=== PATIENT | female | born 1995 | race Caucasian/White ===

== ENCOUNTER 2016-06-21 17:59 | Inpatient (IN) | payer OTHER ==
[2016-06-21 19:06] LABS: Urine Bacteria Absent (Absent); Urine Bilirubin Negative (Negative); Urine Glucose Negative (Negative); Urine Nitrite Negative (Negative)
[2016-06-21] MEDS ORDERED: Penicillin G Potassium IV* 5 MILLION.UNITS VIAL ONE (19:29)
[2016-06-21 19:56] LABS: Hematocrit 34 % (35-47); Hemoglobin 11.6 g/dl (12.0-16.0); Mean Corpuscular HGB Conc 35 g/dl (31-36); Mean Corpuscular Hemoglobin 30 pg (27-31); Mean Corpuscular Volume 86 fL (80-97); Mean Platelet Volume 8 um3 (7.4-10.4); Red Blood Count 3.91 10^6/ul (4.0-5.4); Red Cell Distribution Width 13 % (10.5-15); White Blood Count 13.7 10^3/ul (3.5-10.8)
[2016-06-21] MEDS ORDERED: Penicillin G Potassium IV* 5,000,000 UNITS in NS 0.9% 100 ML* 100 ML IVPB ONE (20:00)
[2016-06-21] MEDS ORDERED: fentaNYL* 50 MCG/ML 2 ML VIAL (100 MCG VIAL) ONE (20:08)
[2016-06-21 20:19] LABS: Benzodiazepine Urine Screen None Detected (None Detect)
[2016-06-21] MEDS ORDERED: Acetaminophen TAB* 325 MG PO PRN (21:41)
[2016-06-21] MEDS ORDERED: Dibucaine 1% 28.35 GM TUBE PR PRN (21:41)
[2016-06-21] MEDS ORDERED: Witch Hazel PAD* JAR TOPICAL PRN (21:41)
[2016-06-21] MEDS ORDERED: Measles, Mumps,Rubella VACC* 0.5 ML/VIAL SUBCUT ONE (21:41)
[2016-06-21] MEDS ORDERED: Glycerin ADULT SUPP PR PRN (21:41)
[2016-06-21] MEDS ORDERED: RHO D Immune Globulin (HUMAN)* 300 MCG = 1,500 I.U. INJ IM ONE (21:41)
[2016-06-21] MEDS ORDERED: Ibuprofen TAB* 600 MG PO PRN (21:41)
[2016-06-21] MEDS ORDERED: Varicella Virus Vaccine Live* 0.5 ML VIAL SUBCUT ONE (21:41)
[2016-06-21] MEDS ORDERED: Oxytocin in LR* 20 UNITS/1,000 ML BAG IVPB SCH (22:00)
[2016-06-21] MEDS ORDERED: OXYTOCIN* 10 UNITS/ML 1 ML VIAL ONE (23:53)
[2016-06-22] MEDS ORDERED: Penicillin G Potassium IV* 2,500,000 UNITS in NS 0.9% 100 ML* 100 ML IVPB SCH ×2
[2016-06-22 07:28] LABS: Hematocrit 28 % (35-47); Hemoglobin 9.7 g/dl (12.0-16.0); Mean Corpuscular HGB Conc 35 g/dl (31-36); Mean Corpuscular Hemoglobin 30 pg (27-31); Mean Corpuscular Volume 85 fL (80-97); Mean Platelet Volume 7 um3 (7.4-10.4); Red Blood Count 3.27 10^6/ul (4.0-5.4); Red Cell Distribution Width 13 % (10.5-15); White Blood Count 14.8 10^3/ul (3.5-10.8)
[2016-06-22] MEDS ORDERED: Simethicone TAB* 80 MG TAB.CHEW PO SCH (08:30)
[2016-06-22] MEDS: Docusate CAP* 100 MG PO SCH ×3 (09:32→20:45)
[2016-06-22] MEDS: Ferrous Gluconate TAB* 324 MG TAB PO SCH ×2 (13:51→20:45)
[2016-06-23] MEDS: Docusate CAP* 100 MG PO SCH ×2 (08:22→14:00)
[2016-06-23] MEDS: Ferrous Gluconate TAB* 324 MG TAB PO SCH (08:22)
[2016-06-23 08:32] VITALS: BP 113/58
== END 2016-06-23 14:00 | disposition home or self-care (01) | DRG 560 ==
LOC: MCHOBOUT 17:59 → MCHOB 19:25
PROVIDERS: ADMIT Obstetrics & Gynecology; ATTEND Obstetrics & Gynecology
PROC: 10E0XZZ Delivery of Products of Conception, External Approach (ICD-10-PCS; principal; 2016-06-21)
PROC: 10907ZC Drainage of Amniotic Fluid, Therapeutic from Products of Conception, Via Natural or Artificial Opening (ICD-10-PCS; 2016-06-21)
DX: O60.14X0 Preterm labor third trimester with preterm delivery third trimester, not applicable or unspecified (principal); Z37.0 Single live birth; Z3A.34 34 weeks gestation of pregnancy
CPT/HCPCS: 36415; 80307; 81003; 81015; 85025; 85461; 86850; 86870; 86880; 86900; 86901; 87086; 87491; 87591; 88307; A9270-GY; J2540; J2590; J2790; J3010

== ENCOUNTER 2016-10-01 12:36 | Emergency (ER) | payer OTHER ==
[2016-10-01 14:30] VITALS: BP 121/85
--- NOTE | 2016-10-01 14:51 | UC ---
Ear Complaint HPI - HPI Summary HPI Summary: 8 DAYS OF LEFT EAR PAIN AND DECREASED SENSATION. NO OTHER SX. - History of Current Complaint Stated Complaint: EAR DISCOMFORT, CONGESTION Time Seen by Provider: 10/01/16 14:14 Hx Obtained From: Patient Hx Last Menstrual Period: 08/09/16 Onset/Duration: Gradual Onset, Lasting Days, Still Present, Worse Since - last 2 days Severity Initially: Moderate Severity Currently: Moderate Pain Intensity: 5 Aggravating Factors: Nothing Alleviating Factors: Nothing Associated Signs/Symptoms: Positive: Hearing Loss. Negative: Discharge, URI Symptoms - Allergies/Home Medications Allergies/Adverse Reactions: Allergies Allergy/AdvReac Type Severity Reaction Status Date / Time Banana Allergy GI Upset Verified 10/01/16 14:30 PMH/Surg Hx/FS Hx/Imm Hx Previously Healthy: Yes - Surgical History Surgical History: Yes Surgery Procedure, Year, and Place: T&A - Family History Known Family History: Positive: Cardiac Disease, Hypertension, Diabetes, Other - cancer - Social History Alcohol Use: Rare Substance Use Type: None Smoking Status (MU): Current Some Day Smoker Type: Cigarettes Have You Smoked in the Last Year: Yes Household Exposure Type: Cigarettes - Immunization History Most Recent Influenza Vaccination: declined Most Recent Tetanus Shot: 06/02/16 Most Recent Pneumonia Vaccination: not indicated Review of Systems Constitutional: Negative Skin: Negative Eyes: Negative ENT: Ear Ache Respiratory: Negative Cardiovascular: Negative Gastrointestinal: Negative Neurological: Negative All Other Systems Reviewed And Are Negative: Yes Physical Exam Triage Information Reviewed: Yes Appearance: Well-Appearing, No Pain Distress, Well-Nourished Vital Signs: Initial Vital Signs Temp 98.4 F 10/01/16 14:27 Pulse 77 10/01/16 14:27 Resp 16 10/01/16 14:27 BP 121/85 10/01/16 14:27 Pulse Ox 97 10/01/16 14:27 Vital Signs Reviewed: Yes Eyes: Positive: Conjunctiva Clear. Negative: Discharge ENT: Positive: Hearing grossly normal, Pharynx normal, TM bulging, TM red. Negative: Nasal congestion, Nasal drainage, Tonsillar swelling, Muffled/hoarse voice Neck: Positive: Supple, Nontender, No Lymphadenopathy Respiratory: Positive: Lungs clear, Normal breath sounds, No respiratory distress, No accessory muscle use Cardiovascular: Positive: RRR, No Murmur Musculoskeletal Exam: Normal Neurological: Positive: Alert, Muscle Tone Normal Psychological: Positive: Age Appropriate Behavior Skin Exam: Normal Ear Complaint Course/Dx - Differential Dx/Diagnosis Differential Diagnosis/HQI/PQRI: Otitis Externa, Otitis Media, Perforated TM, URI Provider Diagnoses: otitis media Discharge - Discharge Plan Condition: Stable Disposition: HOME Prescriptions: Amoxicillin SUSP* [Amoxicillin 400 MG/5 ML SUSP*] 500 mg PO BID #250 ml Patient Education Materials: Otitis Media (ED) Referrals: No Primary Care Phys,NOPCP [Primary Care Provider] - Additional Instructions: AMOXICILLIN: Amoxicillin is a member of the penicillin family. It covers the germs likely to cause ear, bronchial, and urinary infections better than plain penicillin. Amoxicillin can be taken without regard to meals. Nausea after taking the medication is rare, but can occur. Diarrhea can occur, particularly in small children. Vaginal yeast infections and oral thrush in infants are also common. Contact your physician if these problems occur. Allergy to penicillins is common. If you have had an allergic reaction to any drug of the penicillin family, you should never take any other penicillin. Notify your doctor at once if you develop hives, itching, swelling, faintness, or shortness of breath. Less serious side effects can include nausea or diarrhea. ANY TIME YOU TAKE AN ANTIBIOTIC, IT IS IMPORTANT TO REPLENISH THE BODY'S BALANCE OF "GOOD" BACTERIA BY EATING HIGH QUALITY CULTURED FOOD SUCH YOGURT, SAURKRAUT OR KEVIN CHI AND/OR TAKING A PROBIOTIC SUPPLEMENT. FOLLOW-UP CARE: You should establish with a private physician for follow-up care. If you are unable to get a timely appointment, or if you are worsening, call us or return for re-evaluation. An additional resource available to assist in finding the appropriate physician for your health care needs is the [facility]erral Center. You may contact them by calling [phone].
== END 2016-10-01 14:46 | disposition home or self-care (01) ==
LOC: UCEAST 12:36
DX: H66.92 Otitis media, unspecified, left ear (principal); F17.210 Nicotine dependence, cigarettes, uncomplicated
CPT/HCPCS: 99212; G0463

== ENCOUNTER 2016-10-03 14:58 | Emergency (ER) | payer OTHER ==
[2016-10-03 15:39] VITALS: BP 101/64
--- NOTE | 2016-10-03 16:11 | UC ---
Skin Complaint HPI - HPI Summary HPI Summary: Here 2 days ago, dx with L AOM and put on Amoxicillin. Took 1st dose that night and yesterday morning woke up with many itchy bumps just on R posterior upper arm. [place] worse today after taking another dose. No bumps or itchiness anywhere else; has taken amox without a problem in the past. Denies new furniture, recent travel, or new bedding. - History of Current Complaint Chief Complaint: UCRash Time Seen by Provider: 10/03/16 15:37 Stated Complaint: RASH Hx Obtained From: Patient Hx Last Menstrual Period: 08/07/16 ?: No Onset/Duration: Sudden Onset Skin Exposure Onset/Duration: Days Ago Timing: Constant Onset Severity: Mild Current Severity: Mild Location: Discrete Character: Pruritus, Redness, Raised Aggravating: Touch Alleviating: Nothing Associated Signs & Symptoms: Positive: Rash Related History: Recent change in medication - Allergy/Home Medications Allergies/Adverse Reactions: Allergies Allergy/AdvReac Type Severity Reaction Status Date / Time Banana Allergy GI Upset Verified 10/03/16 15:31 Review of Systems Constitutional: Negative Skin: Rash Eyes: Negative ENT: Negative Respiratory: Negative Cardiovascular: Negative Gastrointestinal: Negative Genitourinary: Negative Motor: Negative Neurovascular: Negative Musculoskeletal: Negative Neurological: Negative Psychological: Negative All Other Systems Reviewed And Are Negative: Yes PMH/Surg Hx/FS Hx/Imm Hx Previously Healthy: Yes - Surgical History Surgical History: Yes Surgery Procedure, Year, and Place: &A - 2003 - Family History Known Family History: Positive: Cardiac Disease, Hypertension, Diabetes, Other - cancer - Social History Lives: With Family Alcohol Use: Rare Substance Use Type: None Smoking Status (MU): Light Every Day Tobacco Smoker Type: Cigarettes Amount Used/How Often: 2-3 cigs/ day Have You Smoked in the Last Year: Yes Household Exposure Type: Cigarettes - Immunization History Most Recent Influenza Vaccination: declined Most Recent Tetanus Shot: 06/02/16 Most Recent Pneumonia Vaccination: not indicated Physical Exam Triage Information Reviewed: Yes Appearance: Well-Appearing, No Pain Distress, Well-Nourished Vital Signs: Initial Vital Signs Temp 98.3 F 10/03/16 15:32 Pulse 70 10/03/16 15:32 Resp 18 10/03/16 15:32 BP 101/64 10/03/16 15:32 Pulse Ox 98 05/23/17 15:32 Vital Signs Reviewed: Yes Eye Exam: Normal Eyes: Positive: Conjunctiva Clear ENT Exam: Normal ENT: Positive: Normal ENT inspection, Hearing grossly normal, Pharynx normal, TMs normal Dental Exam: Normal Neck exam: Normal Respiratory Exam: Normal Respiratory: Positive: Chest non-tender, Lungs clear, Normal breath sounds, No respiratory distress, No accessory muscle use Cardiovascular Exam: Normal Cardiovascular: Positive: RRR, No Murmur Musculoskeletal Exam: Normal Neurological Exam: Normal Neurological: Positive: Alert Psychological Exam: Normal Skin Exam: Other - grouped itchy red welts or R posterior upper arm, some arranged in linear patterns. No urticaria or rashes elsewhere on body Course/Dx - Diagnoses Provider Diagnoses: medication allergy. vs. bedbug bites Discharge - Discharge Plan Condition: Stable Disposition: HOME Prescriptions: Cefdinir 250mg/5 ml* [Omnicef 250 mg/5 ml*] 300 mg PO BID #60 ml Patient Education Materials: Antibiotic Medication Allergy (ED), Bed Bugs (ED) Referrals: No Primary Care Phys,NOPCP [Primary Care Provider] - Additional Instructions: As we discussed, the timing of your rash is suspicious for medication allergy. However, the appearance and distribution of your rash is suggestive of bedbugs. Stop the amoxicillin; you only need to start the omnicef if you have worsening ear pain, fever, or drainage from the ear. If you have worsening ear symptoms despite the second antibiotic, please return here. If you continue to get new bumps, or if your partner starts getting a rash, inspect your living area for evidence of bed bugs.
== END 2016-10-03 16:14 | disposition home or self-care (01) ==
LOC: UCEAST 14:58
DX: R21 Rash and other nonspecific skin eruption (principal); F17.210 Nicotine dependence, cigarettes, uncomplicated
CPT/HCPCS: 99212; G0463

== ENCOUNTER 2019-01-14 11:40 | Emergency (ER) | payer OTHER ==
[2019-01-14 12:20] LABS: ABS Lymphocytes 1.2 10^3/ul (1.0-4.8); ABS Monocytes 0.8 10^3/ul (0-0.8); ABS Neutrophils 9.4 10^3/ul (1.5-7.7); Eosinophil % 0.3 %; Hematocrit 34 % (35-47); Hemoglobin 11.7 g/dL (12.0-16.0); Lymphocyte % 10.7 %; Mean Corpuscular HGB Conc 35 g/dL (31-36); Mean Corpuscular Hemoglobin 31 pg (27-31); Mean Corpuscular Volume 88 fL (80-97); Mean Platelet Volume 7.7 fL (7.4-10.4); Platelet Count 193 10^3/uL (150-450); Red Blood Count 3.81 10^6 /uL (3.70-4.87); Red Cell Distribution Width 14 % (10-15); White Blood Count 11.4 10^3/uL (3.5-10.8)
[2019-01-14 12:33] LABS: Albumin 3.8 g/dL (3.2-5.2); Albumin/Globulin Ratio 1.6 (1-3); BUN/Creatinine Ratio 13.6 (8-20); C Reactive Protein 128.85 mg/L (<8.01); Calcium 8.8 mg/dL (8.6-10.3); EGFR African American 134.3 (>60); Globulin 2.4 g/dL (2-4); Potassium 3.6 mmol/L (3.5-5.0); Total Bilirubin 0.4 mg/dL (0.2-1.0); Total Protein 6.2 g/dL (6.4-8.9)
--- NOTE | 2019-01-14 15:04 | ED ---
Abdominal Pain/Female - HPI Summary HPI Summary: This patient is a 23 year old F presenting [facility] accompanied by with a chief complaint of sharp abdominal pain since night of 12/12/18. Pt has not been able to eat. Pt reports pain when breathing. Pt is 22 weeks . Symptoms aggravated by coughing . Patient reports vomiting, chills, constipation, loss of appetite, chronic vaginal discharge and low amount of urine. Patient denies fever, and diarrhea. A1. Medications reviewed. Allergies noted. - History of Current Complaint Chief Complaint: EDAbdPain Stated Complaint: 22 WKS PREG LOW ABD PAIN PER PT Time Seen by Provider: 01/14/19 14:40 Hx Obtained From: Patient Hx Last Menstrual Period: 08/07/16 ?: Yes Onset/Duration: Lasting Days, Still Present Timing: Constant Severity Initially: Moderate Severity Currently: Moderate Pain Intensity: 5 Pain Scale Used: 0-10 Numeric Location: Diffuse Character: Sharp Aggravating Factor(s): Other: - Coughing Alleviating Factor(s): Nothing Associated Signs and Symptoms: Positive: Cough, Urinary Symptoms, Decreased Appetite, Vaginal Discharge, Vomiting. Negative: Fever, Diarrhea Allergies/Adverse Reactions: Allergies Allergy/AdvReac Type Severity Reaction Status Date / Time banana Allergy GI Upset Verified 01/14/19 14:28 Home Medications: Home Medications Vitamin TAB* 1 tab PO DAILY 01/14/19 [History Confirmed 01/14/19] PMH/Surg Hx/FS Hx/Imm Hx Sensory History: Denies: Hx Legally Blind, Hx Deafness Opthamlomology History: Denies: Hx Legally Blind EENT History: Denies: Hx Deafness - Surgical History Surgery Procedure, Year, and Place: &A - 2003 Infectious Disease History: No Infectious Disease History: Denies: Traveled Outside the [place] in Last 30 Days - Family History Known Family History: Positive: Cardiac Disease, Hypertension, Diabetes, Other - cancer - Social History Lives: With Family Alcohol Use: Rare Substance Use Type: Reports: None Smoking Status (MU): Light Every Day Tobacco Smoker Type: Cigarettes Amount Used/How Often: 2-3 cigs/ day Have You Smoked in the Last Year: Yes Review of Systems Positive: Chills, Other - pos - loss of appetite. Negative: Fever Positive: Abdominal Pain, Vomiting, Other - pos - constipation. Negative: Diarrhea Positive: discharge, other - low amount of urine All Other Systems Reviewed And Are Negative: Yes Physical Exam - Summary Physical Exam Summary: Constitutional: Well-developed, Well-nourished, Alert. (-) Distressed Skin: Warm, Dry HENT: Normocephalic; Atraumatic Eyes: Conjunctiva normal Neck: Musculoskeletal ROM normal neck. (-) JVD, (-) Stridor, (-) Tracheal deviation Cardio: Rhythm regular, rate normal, Heart sounds normal; Intact distal pulses; The pedal pulses are 2+ and symmetric. Radial pulses are 2+ and symmetric. (-) Murmur Pulmonary/Chest wall: Effort normal. (-) Respiratory distress, (-) Wheezes, (-) Rales Abd: Soft, (-) tenderness, (-) Distension, (-) Guarding, (-) Rebound; Gravid uterus lower abdominal pain worse in LLQ, but present in all lower quadrants Musculoskeletal: (-) Edema Lymph: (-) Cervical adenopathy Neuro: Alert, Oriented x3 Psych: Mood and affect Normal Heart Rate - 148 bpm Triage Information Reviewed: Yes Vital Signs On Initial Exam: Initial Vitals Temp Pulse Resp BP Pulse Ox 97.9 F 117 20 130/87 98 01/14/19 11:42 01/14/19 11:42 01/14/19 11:42 01/14/19 11:42 01/14/19 11:42 Vital Signs Reviewed: Yes Diagnostics - Vital Signs Vital Signs Temp Pulse Resp BP Pulse Ox 01/14/19 11:42 97.9 F 117 20 130/87 98 - Laboratory Lab Results: Lab Results 01/14/19 01/14/19 01/14/19 Range/Units 12:01 12:01 12:01 WBC 11.4 H (3.5-10.8) 10^3/uL RBC 3.81 (3.70-4.87) 10^6 /uL Hgb 11.7 L (12.0-16.0) g/dL Hct 34 L (35-47) % MCV 88 (80-97) fL MCH 31 (27-31) pg MCHC 35 (31-36) g/dL RDW 14 (10-15) % Plt Count 193 (150-450) 10^3/uL MPV 7.7 (7.4-10.4) fL Neut % (Auto) 81.9 % Lymph % (Auto) 10.7 % [place] % (Auto) 6.8 % Eos % (Auto) 0.3 % Baso % (Auto) 0.3 % Absolute Neuts (auto) 9.4 H (1.5-7.7) 10^3/ul Absolute Lymphs (auto) 1.2 (1.0-4.8) 10^3/ul Absolute Monos (auto) 0.8 (0-0.8) 10^3/ul Absolute Eos (auto) 0.0 (0-0.6) 10^3/ul Absolute Basos (auto) 0.0 (0-0.2) 10^3/ul Absolute Nucleated RBC 0.0 10^3/ul Nucleated RBC % 0.0 Sodium 134 L (135-145) mmol/L Potassium 3.6 (3.5-5.0) mmol/L Chloride 102 (101-111) mmol/L Carbon Dioxide 25 (22-32) mmol/L Anion Gap 7 (2-11) mmol/L BUN 9 (6-24) mg/dL Creatinine 0.66 (0.51-0.95) mg/dL Est GFR ( Amer) 134.3 (>60) Est GFR (Non-Af Amer) 111.0 (>60) BUN/Creatinine Ratio 13.6 (8-20) Glucose 95 (70-100) mg/dL Lactic Acid 1.1 (0.5-2.0) mmol/L Calcium 8.8 (8.6-10.3) mg/dL Total Bilirubin 0.40 (0.2-1.0) mg/dL AST 32 (13-39) U/L ALT 35 (7-52) U/L Alkaline Phosphatase 66 (34-104) U/L C-Reactive Protein 128.85 H (<8.01) mg/L Total Protein 6.2 L (6.4-8.9) g/dL Albumin 3.8 (3.2-5.2) g/dL Globulin 2.4 (2-4) g/dL Albumin/Globulin Ratio 1.6 (1-3) Beta HCG, Quant Cancelled Result Diagrams: 01/14/19 12:01 01/14/19 12:01 Lab Statement: Any lab studies that have been ordered have been reviewed, and results considered in the medical decision making process. - Ultrasound Appendix US Ultrasound Interpretation Completed By: Radiologist Summary of Ultrasound Findings: Appendix US reveals, per radiologist, IMPRESSION : Appendix not visualized. ED physician has reviewed this radiology report. - Additional Comments Diagnostic Additional Comments: Abdomen MRI reveals, per radiologist, IMPRESSION: NO FINDINGS TO SUGGEST ACUTE APPENDICITIS. ED physician has reviewed this radiology report. Re-Evaluation - Re-Evaluation First Eval Re-Evaluation Time: 15:11 Comment: Discussed plan of care with pt. Second Eval Re-Evaluation Time: 16:57 Comment: Discussed MRI results. Abdominal Pain Fem Course/Dx - Course Course Of Treatment: Patient is here with lower abdominal pain in the setting of . She did have a mildly elevated leukocytosis with a CRP of 130. Patient had an equivocal ultrasound for appendicitis. SWITCHBOARD RECEPTIONIST was consulted along with radiologist and put recommended MRI. Patient MRI of her abdomen which showed no evidence of any acute abnormality. Patient is likely suffering from a viral syndrome. Patient is discharged on Reglan for her vomiting. - Diagnoses Provider Diagnoses: Intrauterine , Abdominal pain, Acute vomiting, Chills - Provider Notifications Discussed Care Of Patient With: Kervin Torres Time Discussed With Above Provider: 15:04 Instructed by Provider To: Other - Before exposing to radiation run by surgery and radiology first. 15:05 - Dr. Trotter said if ultra sound is negative, do an MRI. 15:25- Dr. Palacio, agrees, but suggest a CT. Discharge ED - Sign-Out/Discharge Documenting (check all that apply): Patient Departure - Discharge Patient Received Moderate/Deep Sedation with Procedure: No - Discharge Plan Condition: Stable Disposition: HOME Prescriptions: Metoclopramide TAB* [Reglan TAB*] 10 mg PO Q8H PRN #12 tab PRN Reason: Vomiting Patient Education Materials: Nausea and Vomiting in (ED), Abdominal Pain in (ED) Referrals: Kervin Torres MD [Medical Doctor] - As Soon As Possible Additional Instructions: Follow up with OBGYN as soon as possible. PLEASE RETURN TO EMERGENCY DEPARTMENT FOR ANY NEW OR WORSENING SYMPTOMS - Billing Disposition and Condition Condition: STABLE Disposition: Home - Attestation Statements Document Initiated by Scribe: Yes Documenting Scribe: Nirmala Gilliland Provider For Whom Scribe is Documenting (Include Credential): Saul Lu MD Scribe Attestation: Nirmala Tai, scribed for Saul Lu MD on 01/14/19 at 205. Scribe Documentation Reviewed: Yes Provider Attestation: The documentation as recorded by the scribe, Nirmala Gilliland accurately reflects the service I personally performed and the decisions made by me, Saul Lu MD Status of Scribe Document: Viewed
[2019-01-14] MEDS ORDERED: NS 0.9% 1000 ML** 1,000 ML IV ONE (15:13)
[2019-01-14 17:12] VITALS: BP 110/70
--- NOTE | 2019-01-14 18:24 | CONS ---
EMERGENCY ROOM CONSULTATION REPORT: DATE OF CONSULT: 01/14/19 HISTORY OF PRESENT ILLNESS: Ms. Broderick is a 23-year-old 3, para 1-0-1-1 , with a due date of 05/19/19 with a at 22-1/7 weeks estimated gestational age. She presented to the emergency room with complaints of abdominal pain that started on 01/12/19. The patient stated that the pain was localized to the right lower quadrant and radiated towards her lower abdomen. It was intermittent, a crampy sharp colicky sensation. The pain is accompanied by nausea, vomiting, anorexia, and chills. It was better on Sunday morning; however, this morning, the patient awoke with worsening pain. She denied any urinary signs or symptoms. She denied vaginal bleeding, contractions, leakage of fluid, and admits to positive movement. PAST MEDICAL HISTORY: No history of chronic illness. PAST SURGICAL HISTORY: Tonsils and adenoids. FAMILY HISTORY: Significant for hypothyroidism, leukemia, cardiac disease, high blood pressure, and diabetes. SOCIAL HISTORY: The patient denies alcohol use, illicit substance abuse, and she does admit to 2 to 3 cigarettes per day including during . PHYSICAL EXAM: Her vital signs on presentation were temperature of 97.9, pulse in the 100s, respiratory rate of 20, blood pressure of 130/87 with a pulse ox of 98% on room air. Physical exam done by me. Her lungs were clear to auscultation bilaterally. She had no CVA tenderness bilaterally. Her abdomen is soft, gravid, palpable movement with right lower abdominal tenderness on palpation, slight rebound, and left lower quadrant tenderness which radiated towards the patient's right side. Pelvic exam was deferred. DIAGNOSTIC STUDIES/LAB DATA: heart tones were obtained by Doppler. She had a bedside ultrasound which noted positive movement. The patient had a CBC which was consistent with a white blood cell count of 11.4 , hemoglobin and hematocrit of 11.7/34. Rest of the indices were normal. She had a comprehensive metabolic panel which showed a sodium at 134. Electrolytes were all within normal limits along with glucose. Lactic acid of 1.1. LFTs were within normal limits and a C-reactive protein of 128.85, elevated. Abdominal ultrasound is pending. IMPRESSION AND PLAN: The patient's signs and symptoms seem to be gastrointestinal in nature consistent with a possible appendicitis. The patient had a compression ultrasound which has not been read as to the time of this dictation; however, if this is inconclusive, the next study could be either an MRI which is second test preferred; however, if not available then a CT scan of the abdomen is appropriate. The radiation on the CT scan does not reach levels that are harmful to the fetus. I had a conversation with the patient and the patient's significant other, and we discussed her signs and symptoms and possible diagnosis of appendicitis and the possible need for surgical procedure or further radiological imaging. I explained to the patient that in the event that she does need surgery that this will be recommended and it should pose no danger to her as well as either an MRI or a CT scan of the abdomen. The patient's questions were answered to her satisfaction and she is aware of possible surgery or need for more radiation studies. Dopplers were done prior in the emergency room. If the patient does go to the operating room, I recommend that she is maintained in a left lateral decubitus position and after surgery that she have heart tones confirmed by Doppler. [id number]/[facility] #: [id number] DIANE
== END 2019-01-14 17:11 | disposition home or self-care (01) ==
LOC: ED 11:40
DX: O21.2 Late vomiting of pregnancy (principal); R10.31 Right lower quadrant pain; R10.84 Generalized abdominal pain; R68.83 Chills (without fever); Z3A.22 22 weeks gestation of pregnancy; Z91.018 Allergy to other foods; F17.210 Nicotine dependence, cigarettes, uncomplicated
CPT/HCPCS: 36415; 74181; 76705; 80053; 83605; 84702; 85025; 86140; 96360; 99283

== ENCOUNTER 2019-05-10 06:19 | Inpatient (IN) | payer OTHER ==
[2019-05-10] MEDS ORDERED: Lactated Ringers 1000 ML Bag* 1,000 ML IV ONE (06:41)
[2019-05-10] MEDS ORDERED: Buffered Lidocaine 1% SYRIN* 1 ML/SYRINGE INTRADERM ONE (06:41)
--- NOTE | 2019-05-10 06:51 | HP ---
General Information - Reason for Visit contractions every 5 minutes, - LOF, + bloody show - General Information Maternal Age: 23 Grav: 2 Para: 1 SAB: 0 IEA: 0 Estimated Due Date: 05/19/19 Determined By: LMP Gestational Age in Weeks/Days: 38w5d Maternal Blood Type and Rh: A Negative - Results this Serology/RPR Result: Non-Reactive Rubella Result: Immune HBsAg Result: Negative HIV Result: Negative GBS Culture Result: Negative Past Medical History Delivery History: Hx Uncomplicated Vaginal Delivery Pertinent Past Medical History: See Records Past Medical History Comment: tonsillectomy 2003, history of UTIs Pertinent Past Surgical History: See Records - tonsillectomy 2003 Pertinent Family History: See Records - M aunts: thyroid, PGF: kidney CA, leukemia, glaucoma - Antepartal Records Antepartal Records: Reviewed, Complicated by: - history of labor and delivery at 34 weeks, cervical shortening, placenta previa (resolved ) Review of Systems Constitutional: Uncomfortable CV Complaint: No Respiratory: Shortness of Breath: No Gastrointestinal: No Nausea/Vomiting, Normal Bowel Movement Genitourinary: No Dysuria, No Bleeding, No Leaking Fluid Musculoskeletal: No Epigastric Pain, Contractions Neurological: No Headache, No Visual Changes Movement: Normal Exam Allergies/Adverse Reactions: Allergies banana Allergy (Verified 01/14/19 14:28) GI Upset egg Allergy (Verified 04/29/19 17:16) GI Upset 124/71, P:100, T:97.6, O2:99% - Measurements Height: 5 ft Weight: 144 lb Body Mass Index (BMI): 28.1 Pre- Weight: 116 lb - Exam Breast: Breast Exam Deferred CVA: No CVA Tenderness Extremities: No Edema Heart: Normal Rhythm/Heart Sounds HEENT: No Significant Findings Lungs: Clear Bilaterally Rectal: Rectal Exam Deferred Reflexes: DTR 2+ Thyroid: No Thyromegaly - Abdominal Exam Abdomen Exam: Non-Tender, Fundal Height Consistent with Dates - Ultrasound/Biophysical Profile Ultrasound Status: Not Done Targeted Exam Findings Estimated Weight: 7lbs Cervical Exam: 8cm Effacement: 100% Station: 0 Presenting Part: Vertex Membrane Status: Bulging Bleeding/Discharge: Bloody Show EFM Findings - External Monitor Findings Baseline Heart Rate: 140 External Monitor Findings: Accelerations Present, No Pattern of Variable or Late Decelerations, Variability Moderate, Baseline Stable Contractions: Regular, Moderate, 45-90 Seconds Contraction Frequency: 2 Assessment/Plan - Assessment 23 y.o. , 38w5d EGA, active labor, GBS negative, cat I NST - Plan Plan: Admit - Anticipate Vaginal Delivery - Date/Time of Admission Date of Admission: 05/10/19 Time of Admission: 06:50
[2019-05-10] MEDS ORDERED: Lactated Ringers 1000 ML Bag* 1,000 ML IV SCH ×2 (07:00→09:00)
[2019-05-10] MEDS ORDERED: Glycerin ADULT SUPP PR PRN (08:06)
[2019-05-10] MEDS ORDERED: Witch Hazel PAD* JAR TOPICAL PRN (08:06)
[2019-05-10] MEDS ORDERED: Ibuprofen TAB* 600 MG PO PRN (08:06)
[2019-05-10] MEDS ORDERED: Dibucaine 1% 28.35 GM TUBE PR PRN (08:06)
--- NOTE | 2019-05-10 08:16 | PROCNOTE ---
[facility] OB: Delivery Note - Delivery A Date of : 05/10/19 Time of : 07:43 Sex: Female Score 1 Minute: 9 Score 5 Minutes: 10 Gestational Age in Weeks and Days at Delivery: 38 Weeks and 5 Days Delivery Method: Spontaneous Vaginal Labor: Spontaneous Did Patient attempt ?: N/A, No Previous Amniotic Fluid: Clear Estimated Blood Loss: 200 Anesthesia/Analgesia: None Delivered By: Lois Singh - Nursery Level of Nursery: Regular/Bedside - Perineum Perineal Injury Comment: left labial Perineal Repair: By Delivering Practioner - Events Delivery Events of Note: Precipitous Delivery Delivery Events of Note Comment: placenta with accessory lobe
[2019-05-10] MEDS ORDERED: Simethicone TAB* 80 MG TAB.CHEW PO SCH (08:30)
[2019-05-10] MEDS: Docusate CAP* 100 MG PO SCH ×3 (09:45→21:59)
[2019-05-10 11:26] LABS: Urine Benzodiazepine Screen None Detected (None Detect); Urine Opiates Screen None Detected (None Detect)
[2019-05-10] MEDS: Acetaminophen TAB* 325 MG PO PRN (22:24)
[2019-05-11 07:07] LABS: ABS Basophils 0.1 10^3/ul (0-0.2); ABS Eosinophils 0.1 10^3/ul (0-0.6); ABS Lymphocytes 2.5 10^3/ul (1.0-4.8); ABS Monocytes 0.7 10^3/ul (0-0.8); Eosinophil % 1.1 %; Hematocrit 28 % (35-47); Hemoglobin 9.8 g/dL (12.0-16.0); Lymphocyte % 26.2 %; Mean Corpuscular HGB Conc 34 g/dL (31-36); Mean Corpuscular Hemoglobin 27 pg (27-31); Mean Corpuscular Volume 79 fL (80-97); Mean Platelet Volume 7.1 fL (7.4-10.4); Platelet Count 154 10^3/uL (150-450); Red Blood Count 3.61 10^6 /uL (3.70-4.87); Red Cell Distribution Width 14 % (10-15); White Blood Count 9.4 10^3/uL (3.5-10.8)
[2019-05-11] MEDS: Docusate CAP* 100 MG PO SCH ×3 (09:25→21:11)
[2019-05-11] MEDS: Ferrous Gluconate TAB* 324 MG TAB PO SCH ×2 (09:26→21:11)
[2019-05-11] MEDS: Acetaminophen TAB* 325 MG PO PRN ×2 (09:26→18:09)
[2019-05-11] MEDS ORDERED: RHO D Immune Globulin (HUMAN)* 300 MCG = 1,500 I.U. INJ IM ONE (10:41)
[2019-05-12] MEDS: Acetaminophen TAB* 325 MG PO PRN (08:02)
[2019-05-12] MEDS: Ferrous Gluconate TAB* 324 MG TAB PO SCH (08:02)
[2019-05-12] MEDS: Docusate CAP* 100 MG PO SCH (08:02)
[2019-05-12 08:23] VITALS: BP 109/73
== END 2019-05-12 10:45 | disposition home or self-care (01) | DRG 560 ==
LOC: MCHOBOUT 06:19 → MCHOB 06:53
PROVIDERS: ADMIT Midwife; ATTEND Midwife
PROC: 10E0XZZ Delivery of Products of Conception, External Approach (ICD-10-PCS; principal; 2019-05-10)
PROC: 10907ZC Drainage of Amniotic Fluid, Therapeutic from Products of Conception, Via Natural or Artificial Opening (ICD-10-PCS; 2019-05-10)
PROC: 0HQ9XZZ Repair Perineum Skin, External Approach (ICD-10-PCS; 2019-05-10)
DX: O62.3 Precipitate labor (principal); Z37.0 Single live birth; O70.0 First degree perineal laceration during delivery; O90.81 Anemia of the puerperium; D64.9 Anemia, unspecified; Z3A.38 38 weeks gestation of pregnancy
CPT/HCPCS: 36415; 80307; 85025; 85461; 86850; 86870; 86880; 86900; 86901; A9270-GY; J2790